=== PATIENT | male | born 1955 | race Caucasian/White ===

== ENCOUNTER 2019-04-08 08:45 | Observation (INO) ==
[~2019-04-08 08:45] MED LIST: Nicotine 14 MG PATCH.TD24 TD SCH; SODIUM CHLORIDE/NAHCO3/KCL/PEG 4,000 ML SOLN.RECON PO ONE; traZODone 50 MG TABLET PO PRN
[2019-04-08] MEDS ORDERED: Cholecalciferol (D-3) 1,000 UNIT (25MCG) TABLET PO SCH (09:00)
[2019-04-08] MEDS ORDERED: *HR* Propofol 200 MG/20 ML VIAL IVP ONE (12:55)
[2019-04-08] MEDS ORDERED: *HR* PHENYLEPHRINE 1,000 MCG/10 ML SYRINGE IVP ONE (13:58)
[2019-04-08] MEDS ORDERED: EPHEDrine 50 MG/ML VIAL ONE (14:25)
[2019-04-08 16:14] VITALS: BP 108/69
== END 2019-04-08 18:49 | disposition home or self-care (01) ==
LOC: 3ANU → EDSTATUS 13:05
PROVIDERS: ADMIT Internal Medicine; ATTEND Internal Medicine